=== PATIENT | female | born 1965 | race Caucasian/White ===

== ENCOUNTER 2024-10-04 06:56 | Day surgery (SDC) | payer OTHER ==
[~2024-10-04] VITALS: Ht 165.1 cm; Wt 123.4 kg
[~2024-10-04 06:56] MED LIST: B-12100010 PO; D 1010002 PO; LEVO50TA5 PO; TIRZ7.5P3 SC
[2024-10-04 09:18] VITALS: BP 146/76; O2SAT 98
== END 2024-10-04 09:20 | disposition home or self-care (01) ==
LOC: M OPP 06:56
PROVIDERS: ATTEND Internal Medicine Gastroenterology
DX: Z12.11 Encounter for screening for malignant neoplasm of colon (principal); D12.5 Benign neoplasm of sigmoid colon; K57.30 Diverticulosis of large intestine without perforation or abscess without bleeding; K64.8 Other hemorrhoids; Z79.899 Other long term (current) drug therapy; Z87.891 Personal history of nicotine dependence